=== PATIENT | female | born 1985 | race Caucasian/White ===

== ENCOUNTER → 2021-05-26 16:05 | Outpatient (CLI) | payer OTHER, MEDICAID, SELFPAY ==
[2021-05-26 17:10] LABS: Erythrocyte Sedimentation Rate 5 MM/HR (0-20)
[2021-05-26 17:59] LABS: C-Reactive Protein Quant < 0.5 mg/dL (<1.0)
[2021-05-26 18:07] LABS: Rheumatoid Factor < 8.6 IU/mL (<12.0)
[2021-05-28 21:36] LABS: CCP Antibodies IgG/IgA 6 units (0-19)
[2021-05-29 17:41] LABS: ANA Screen, IFA Negative (.)
== END ==
PROVIDERS: PCP Family Medicine; Referring Provider Family Medicine; Visit Provider Family Medicine
DX: G89.4 Chronic pain syndrome (principal); M25.549 Pain in joints of unspecified hand; Q79.60 Ehlers-Danlos syndrome, unspecified
CPT/HCPCS: 36415; 85651; 86038; 86140; 86200; 86430

== ENCOUNTER → 2021-07-22 13:00 | Outpatient (CLI) | payer OTHER, MEDICAID, SELFPAY ==
--- NOTE | 2021-07-22 13:13 | DI.ECHO.S_ITS ---
+ + :Reason For Study: BICUSPID AORTIC VALVE : :Ordering Physician: MIRANDA, : :WILLIAM Performed By: Beverly Hilton : :Referring: WILLIAM JEAN : + + Interpretation Summary The left ventricle is normal in size and wall thickness. The ejection fraction is estimated to be 60-65%. The right ventricle is normal in size and function. The IVC is of normal diameter and collapses greater than 50% with a sniff. This suggests a low right atrial pressure of 3 mm Hg. The ascending aorta is mild-moderately enlarged 3.9 cm. Bicuspid Aortic valve. No significant valvular disease. Procedure: A two-dimensional transthoracic echocardiogram with color flow and Doppler was performed. The study quality was technically good. There is no prior echocardiogram noted for this patient. The patient was in sinus tachycardia with heart rates between 84-116 bpm during the exam. Left Ventricle: The left ventricle is normal in size and wall thickness. The ejection fraction is estimated to be 60-65%. Left ventricular wall motion is normal. Diastolic function could not be accurately assessed due to tachycardia. Right Ventricle: The right ventricle is normal in size and function. Atria: Both atria are normal in size. There is no Doppler evidence for an interatrial shunt. Mitral Valve: The mitral valve is normal in structure and function. There is a flat closure plane of the the mitral valve leaflets. There is no mitral valve stenosis. There is no mitral regurgitation noted. Aortic Valve: The aortic valve is bicuspid. The aortic valve opens well. There is no aortic valve stenosis. There is trace aortic regurgitation. Tricuspid Valve: The tricuspid valve is normal in structure and function. There is trace tricuspid regurgitation. Pulmonary artery pressures cannot be estimated because of the lack of a measurable TR jet velocity but the IVC suggests a CVP of around 3 mmHg. Pulmonic Valve: The pulmonic valve leaflets are thin and pliable; valve motion is normal. There is a trace or physiologic amount of pulmonic regurgitation. Great Vessels: The aortic root is normal size. The ascending aorta is mildmoderately enlarged. The IVC is of normal diameter and collapses greater than 50% with a sniff. This suggests a low right atrial pressure of 3 mm Hg. Pericardium/ Pleura There is no pericardial effusion. There is no pleural effusion. MMode/2D Measurements & Calculations LVIDd: 3.7 cm LVOT diam: 2.0 cm LVIDs: 2.7 cm Ao root diam: 3.4 cm FS: 26.0 % asc Aorta Diam: 3.9 cm IVSd: 0.73 cm Ao Arch Diam (Prox Trans): 2.6 cm LVPWd: 0.64 cm LV akhtar. diameter/BSA (cm/m^2): 2.3 LV sys. diameter/BSA (cm/m^2): 1.7 LA A2 area: 11.5 cm2 RA long axis: 3.7 cm LA A4 area: 12.8 cm2 RA area: 11.8 cm2 LA length (vol): 3.9 cm RA vol: 31.6 ml LA vol: 32.0 ml RA : 19.4 ml/m2 LA vol index: 19.7 ml/m2 IVC diam: 1.7 cm RVD1 (basal): 3.4 cm TAPSE: 2.1 cm Doppler Measurements & Calculations Ao V2 max: 145.9 cm/sec LVOT Max Ramon: 92.0 cm/sec Ao V2 mean: 97.8 cm/sec LV V1 max P.4 mmHg Ao max P.5 mmHg LV V1 VTI: 18.4 cm Ao mean P.3 mmHg JESSICA(I,D): 2.6 cm2 Ao V2 VTI: 23.2 cm JESSICA(V,D): 2.1 cm2 sev ratio: 0.79 JESSICA indexed to BSA (cm^2/m^2): 1.6 MV E max ramon: 98.5 cm/sec PA V2 max: 85.8 cm/sec MV A max ramon: 2.8 cm/sec PA V2 mean: 59.9 cm/sec MV E/A: 35.4 PA mean P.6 mmHg Med Peak E' Ramon: 14.9 cm/sec PA pr(Accel): 31.5 mmHg E/E' med: 6.6 Lat Peak E' Ramon: 21.5 cm/sec E/E' lat: 4.6 E/e' average: 5.6 MV dec time: 0.17 sec SV(LVOT): 60.4 ml
== END ==
PROVIDERS: PCP Family Medicine; Referring Provider Family Medicine; Visit Provider Family Medicine
DX: Q23.1 Congenital insufficiency of aortic valve (principal); Q79.60 Ehlers-Danlos syndrome, unspecified; I77.89 Other specified disorders of arteries and arterioles; G89.4 Chronic pain syndrome
CPT/HCPCS: 93306

== ENCOUNTER → 2021-08-07 17:12 | Outpatient (CLI) | payer OTHER, MEDICAID, SELFPAY ==
[2021-08-07 18:31] LABS: HEMOLYSIS < 15 (0-50); Iron 113 ug/dL (37-170)
[2021-08-07 18:44] LABS: Percent Iron Saturation 32 % (15-50); Total Iron Binding Capacity 353 ug/dL (265-497); Transferrin 285 mg/dL (206-381)
[2021-08-07 18:50] LABS: Free T4, Direct Thyroxine 1.09 ng/dL (0.78-2.19)
[2021-08-07 19:03] LABS: Thyroid Stimulating Hormone 2.01 uIU/mL (0.47-4.68)
== END ==
PROVIDERS: PCP Family Medicine; Referring Provider Obstetrics & Gynecology; Visit Provider Obstetrics & Gynecology
DX: L65.9 Nonscarring hair loss, unspecified (principal)
CPT/HCPCS: 36415; 83540; 83550; 84439; 84443

== ENCOUNTER 2021-08-26 13:01 | Emergency (ER) | payer OTHER, MEDICAID, SELFPAY ==
[2021-08-26 13:12] VITALS: BP 140/79; PULSE 109; RESP 15; TEMP 37; O2SAT 100; BMI 18.8
== END 2021-08-26 14:50 | disposition left against medical advice (07) ==
PROVIDERS: Emergency Provider Emergency Medicine; PCP Family Medicine
DX: Z53.21 Procedure and treatment not carried out due to patient leaving prior to being seen by health care provider (principal)
CPT/HCPCS: 81003; 81025; 99282

== ENCOUNTER → 2021-10-07 17:31 | Outpatient (CLI) | payer OTHER, MEDICAID, SELFPAY ==
[2021-10-07 18:18] LABS: HEMOLYSIS < 15 (0-50); Iron 102 ug/dL (37-170)
[2021-10-07 18:29] LABS: Percent Iron Saturation 28 % (15-50); Total Iron Binding Capacity 359 ug/dL (265-497); Transferrin 270 mg/dL (206-381)
[2021-10-07 18:37] LABS: Free T4, Direct Thyroxine 1.09 ng/dL (0.78-2.19); Progesterone, Total 2.97 ng/mL
[2021-10-07 18:50] LABS: Thyroid Stimulating Hormone 2.66 uIU/mL (0.47-4.68)
[2021-10-07 18:52] LABS: Estradiol, Total 62.8 pg/mL
[2021-10-12 18:35] LABS: Percent Free Testosterone 1.38 % (0.50-2.80); Testosterone Free 0.38 ng/dL (0.10-0.85); Testosterone Total 27.2 ng/dL (10.0-55.0)
== END ==
PROVIDERS: PCP Family Medicine; Referring Provider Obstetrics & Gynecology; Visit Provider Obstetrics & Gynecology
DX: L65.9 Nonscarring hair loss, unspecified (principal)
CPT/HCPCS: 36415; 82670; 83540; 83550; 84144; 84402; 84403; 84439; 84443

== ENCOUNTER → 2021-10-13 11:21 | Outpatient (CLI) | payer OTHER, MEDICAID, SELFPAY ==
[2021-10-13 12:09] LABS: COVID19 -Nasal RAPID Negative (Negative)
== END ==
PROVIDERS: PCP Family Medicine; Visit Provider Obstetrics & Gynecology
DX: Z01.812 Encounter for preprocedural laboratory examination (principal); Z20.822 Contact with and (suspected) exposure to COVID-19
CPT/HCPCS: 87635; C9803

== ENCOUNTER 2021-10-14 08:43 | Day surgery (SDC) | payer OTHER, MEDICAID, SELFPAY ==
[2021-10-03 09:19] VITALS: BMI 19.1
[2021-10-14] VITALS (9 sets, daily range): BP systolic 103–123; BP diastolic 68–81; PULSE 79–104; RESP 10–16; TEMP 36.8–37.6; O2SAT 100; BMI 19.1
[2021-10-14] MEDS: LACTATED RINGERS 1,000 ML 100 ML IV ×2 (09:18→11:30)
--- NOTE | 2021-10-14 10:52 | PM.HP.1 ---
History of Present Illness History of Present Illness Date Patient Seen: 10/14/21 Time Patient Seen: 10:52 Chief complaint: PELVIC Narrative: Patient is a 36-year-old 1 para 0 who presents with pelvic pain, dysmenorrhea, and a Mirena IUD in place She is scheduled for a Mirena IUD removal, a diagnostic laparoscopy with possible lysis of adhesions or fulguration of endometriosis Patient History Medical History (Updated 09/10/21 @ 00:00 by ) ADHD Anxiety Bicuspid aortic valve Chronic pain syndrome Nelson-Danlos syndrome Fibromyalgia Migraine aura, persistent OCD (obsessive compulsive disorder) PTSD (post-traumatic stress disorder) Small fiber neuropathy Surgical History (Updated 08/27/21 @ 05:55 by Anne Jiménez MD) Status post breast reduction Status post laparoscopic cholecystectomy Family & Social History Social History: household members family Tobacco & Substance use: Smoking Status Never smoker alcohol intake current alcohol intake frequency holiday/special occasion Substance Use Type does not use Meds Home Medications and Allergies Home Medications Medication Instructions Recorded Confirmed Type sumatriptan succinate 25 mg tablet See Rx Instructions PO .COMPLEX 06/11/21 10/03/21 Rx #30 tab dextroamphetamine-amphetamine ER 30 mg PO DAILY #30 cap 10/02/21 10/14/21 Rx 30 mg 24hr capsule,extend release (Adderall XR) tramadol 50 mg tablet 50 mg PO QID #120 tab 10/02/21 10/14/21 Rx Allergies Allergy/AdvReac Type Severity Reaction Status Date / Time adhesive tape AdvReac Mild Minor skin Verified 10/14/21 09:06 irritation Exam Vital Signs (past 8 hours): - 10/14/21 09:09 Temperature 99.6 F Pulse Rate 79 Respiratory Rate 16 Blood Pressure 121/74 Pulse Oximetry 100 Oxygen Delivery Method Room Air Narrative Exam Narrative: HEENT: [No thyromegaly, no anterior cervical or supraclavicular lymphadenopathy.] Lungs:[Clear to auscultation bilaterally, no wheezes.] Cardiovascular: [Regular rate and rhythm, no murmurs, rubs, or gallops]. Abdomen: [Well-healed right upper quadrant scars. No hepatosplenomegaly. No masses palpable.] External genitalia: [Normal] Vagina: [Normal] Cervix: Nulliparous Bimanual exam: 6 week size anteverted uterus. No adnexal masses or tenderness. Some uterosacral ligament tenderness. Extremities: No edema Assessment & Plan Assessment & Plan narrative: Assessment: 36-year-old 1 para 0 with dysmenorrhea, pelvic pain, and a Mirena IUD in place Plan: Removal of Mirena IUD Diagnostic laparoscopy with possible fulguration of endometriosis or lysis of adhesions The risks, benefits, and alternatives to the procedure were explained to the patient. The risks including bleeding, infection, injury to the bowel, bladder, or ureters. She understands these risks and agrees to proceed. A full par Q was held and consent form was signed. COVID-19 COVID-19 status: Negative Result date/Date tested (Pos, Neg/Pending): 10/13/21 Time Spent With Patient Time with patient: less than 30 minutes Critical Care time: I spent a total of [] minutes of critical care time on this patient's care today; this time is exclusive of procedural time.
--- NOTE | 2021-10-14 10:55 | SUR.PREOP ---
Patient states that Dr. Jiménez said that she doesn't need a pre-op urine HCG
--- NOTE | 2021-10-14 10:56 | PM.PREOP ---
Pre-operative Note COVID-19 COVID-19 status: Negative Result date/Date tested (Pos, Neg/Pending): 10/13/21 Criteria for continued procedure: Continuing or worsening of significant or severe pain and Non-surgical alternatives not available or appropriate per current SOC Interval Note History & Physical reviewed/Exam performed by Physician: Yes Changes to H&P: No H&P completed within 30 days and has changed as indicated here:: 10/14/21
[2021-10-14] MEDS: BUPIVACAINE 0.5% (PF) 30 ML, EPINEPHrine 0.15 MG INJ (12:00)
--- NOTE | 2021-10-14 12:14 | PM.GYNOP.1 ---
Operative Date/Time/Diagnoses Date of procedure: 10/14/21 Time of procedure: 12:15 Pre-op diagnosis: Pelvic pain Dysmenorrhea Mirena IUD in place Post-op diagnosis: same Procedure & Clinicians Procedure: Procedures Operation Date: 10/14/21 09:45 Actual Procedure Side Surgeon paras NAPIER Laparoscopy, Poss. Fulguration of Endometriosis, Removal of IUD Anne Jiménez MD Indications: Pelvic pain Dysmenorrhea Mirena IUD in place, desires removal Surgeon: Anne Jiménez Anesthesia Type: General and Local Operative Notes Findings: 6 week size anteverted uterus Prominent small vessels in the posterior cul-de-sac Normal left tube and ovary Normal right ovary Right tube with a paratubal cyst Surgical clip in the right lower quadrant Normal liver Closure Type: primary Specimen(s): none Estimated blood loss (mL): 5 Blood products transfused: none Procedure in detail: After informed consent was obtained, the patient was taken to the operating room where she was placed in the dorsal supine position. After adequate general endotracheal anesthesia was achieved, she was placed in the dorsal lithotomy position, and prepped and draped in the usual sterile fashion. A time-out was performed. A bivalve speculum was placed into the vagina. The Mirena IUD strings were visible outside the cervical os. They were grasped with a ring forcep and the IUD was removed without difficulty. The cervical os was sequentially dilated until the Zumi uterine manipulator could pass easily into the endometrial cavity. Single-tooth tenaculum was removed from the anterior lip of the cervix. The bivalve speculum was removed from the vagina. Attention was then turned to the abdomen where 6 cc of 0.5% Marcaine with epinephrine were injected in the umbilical fold through previous incision. The Veress needle was placed into the peritoneal cavity, and its placement confirmed by aspiration and drop test. The abdominal cavity was insufflated with 2.9 L of CO2. The Veress needle was removed, and a 5 mm trocar was placed without difficulty. A second incision was made above the pubic symphysis after 6 cc of 0.5% Marcaine with epinephrine were injected. A 5 mm trocar was placed under direct visualization. The probe was used to identify both tubes and ovaries as well as posterior cul-de-sac. There was a small amount of clear/yellow fluid in the posterior cul-de-sac. There was a surgical clip that was visualized in the right lower quadrant. A third incision was made 4 cm lateral on the right side after 6 cc of 0.5% Marcaine with epinephrine were injected a third 5 mm trocar was placed under direct visualization. The probe was used to hold the tube and ovary out of the way. Surgical clip was grasped and excised with Endo Brandon. No bleeding was noted. A right paratubal cyst was grasped with a grasper distal to the tube. The tissue between the tube and the cyst was cauterized and cut with the Endo Brandon. Hemostasis was achieved. A small amount of fluid was aspirated from the posterior cul-de-sac. The instruments were removed from the abdomen. The CO2 was allowed to escape. The incisions were closed with 4-0 Monocryl in a subcuticular fashion. Steri-Strips and Allevyn dressings were placed. The Zumi uterine manipulator was removed from the uterus. Sponge, lap, and instrument counts were correct x2. The patient tolerated the procedure well, and was taken to PACU in stable condition. Complications: none Post-operative Condition: stable Disposition: PACU Plan for aftercare: Home after recovery
--- NOTE | 2021-10-14 12:21 | SUR.PHASEI ---
Received to PACU after general anesthesia. Airway patent, self maintained. Report from Dr Siddiqi and PETERSON Funk.
--- NOTE | 2021-10-14 12:27 | SUR.OPER ---
Lithotomy on padded OR bed, head on pillow, arms padded with gel pads and tucked at sides. Legs secured in padded yellow fins stirrups. Patient voided at 1105 in pre-op bathroom prior to going into OR.
[2021-10-14] MEDS: OXYCODONE/ACETAMINOPHEN 5/325 TABLET 1 TAB PO (12:55)
[2021-10-14] MEDS: BENZOCAINE/MENTHOL 1 LOZ PKT 1 EACH PO (13:33)
== END 2021-10-14 14:00 | disposition home or self-care (01) ==
PROVIDERS: PCP Family Medicine; Referring Provider Obstetrics & Gynecology; Visit Provider Obstetrics & Gynecology
PROC: 0U5B4ZZ Destruction of Endometrium, Percutaneous Endoscopic Approach (ICD-10-PCS; CPT 58662; principal; 2021-10-14 09:45)
DX: N94.6 Dysmenorrhea, unspecified (principal); Z30.432 Encounter for removal of intrauterine contraceptive device; N83.8 Other noninflammatory disorders of ovary, fallopian tube and broad ligament; G43.909 Migraine, unspecified, not intractable, without status migrainosus; Q79.60 Ehlers-Danlos syndrome, unspecified; M79.7 Fibromyalgia
CPT/HCPCS: 58662; 58301; J0171; J0330; J2250; J3010

== ENCOUNTER → 2022-02-13 10:56 | Outpatient (CLI) | payer OTHER, MEDICAID, SELFPAY ==
[2022-02-14 02:04] LABS: Alanine Aminotransferase 15 IU/L (<35); Albumin 4.3 g/dL (3.5-5.0); Albumin Globulin Ratio 1.7 (1.0-2.8); Alkaline Phosphatase 44 U/L (38-126); Aspartate Aminotransferase 20 IU/L (14-36); BUN Creatinine Ratio 16.2 (6-22); Bilirubin Total 1.1 mg/dL (0.2-1.3); Blood Urea Nitrogen 11 mg/dL (7-17); Calcium 9.2 mg/dL (8.4-10.2); Carbon Dioxide 26 mmol/L (22-32); Chloride 106 mmol/L (98-107); Estimated Glomerular Filt Rate > 60 mL/min (>60); Globulin 2.6 g/dL (1.7-4.1); Glucose 82 mg/dL (70-100); HEMOLYSIS < 15 (0-50); Potassium 4.7 mmol/L (3.4-5.1); Sodium 140 mmol/L (137-145); Total Protein 6.9 g/dL (6.3-8.2)
== END ==
PROVIDERS: PCP Family Medicine; Referring Provider Obstetrics & Gynecology; Visit Provider Obstetrics & Gynecology
DX: K76.0 Fatty (change of) liver, not elsewhere classified (principal); R10.11 Right upper quadrant pain
CPT/HCPCS: 36415; 80053

== ENCOUNTER → 2022-04-03 12:16 | Outpatient (CLI) | payer OTHER, MEDICAID, SELFPAY ==
--- NOTE | 2022-04-03 12:18 | DI.US.S_ITS ---
PROCEDURE: US ABDOMEN LIMITED INDICATIONS: RUQ pain and hepatic steatosis TECHNIQUE: Real-time focused scanning was performed of the abdomen, with image documentation. COMPARISON: None. FINDINGS: The liver is normal in size and demonstrates no suspicious lesions. The liver demonstrates normal overall echotexture. Status post cholecystectomy. There is no biliary dilatation, the common bile duct measures 3 mm. No significant pancreatic abnormality is seen on these images. IMPRESSION: Status post cholecystectomy, without biliary dilatation. Fatty liver infiltration is not demonstrated on this study. Dictated by: Fran Carrillo M.D. on 04/03/2022 at 13:31 Approved by: Fran Carrillo M.D. on 04/03/2022 at 13:31
== END ==
PROVIDERS: PCP Family Medicine; Referring Provider Family Medicine; Visit Provider Family Medicine
DX: R10.11 Right upper quadrant pain (principal); K76.0 Fatty (change of) liver, not elsewhere classified; Z90.49 Acquired absence of other specified parts of digestive tract
CPT/HCPCS: 76705

== ENCOUNTER → 2022-08-03 13:40 | Outpatient (CLI) | payer OTHER, MEDICAID, SELFPAY ==
--- NOTE | 2022-08-03 13:50 | DI.ECHO.S_ITS ---
Interpretation Summary The ejection fraction is estimated to be 55-60%. Diastolic parameters suggest probable normal left ventricular diastolic function and normal filling pressures. The right ventricle is normal in size and function. The aortic valve is bicuspid. There is trace aortic regurgitation. Pulmonary artery pressures cannot be estimated because of the lack of a measurable TR jet velocity. The ascending aorta is mildly enlarged, 3.8 cm. Procedure: A two-dimensional transthoracic echocardiogram with color flow and Doppler was performed. The study quality was technically adequate. Comparison is made with the echocardiogram of 07/22/2021. The patient was in normal sinus rhythm during the exam. Left Ventricle: The left ventricle is normal in size and wall thickness. Left ventricular systolic function is normal. The ejection fraction is estimated to be 55-60%. There are no focal wall motion abnormalities. Diastolic parameters suggest probable normal left ventricular diastolic function and normal filling pressures. Right Ventricle: The right ventricle is normal in size and function. Atria: Both atria are normal in size. The interatrial septum grossly appears intact with no obvious evidence for an atrial septal defect. Mitral Valve: The mitral valve is normal in structure and function. There is trace mitral regurgitation. Aortic Valve: The aortic valve is bicuspid. The aortic valve opens well. There is no aortic valve stenosis. There is trace aortic regurgitation. Tricuspid Valve: The tricuspid valve is normal in structure and function. No tricuspid regurgitation. Pulmonary artery pressures cannot be estimated because of the lack of a measurable TR jet velocity. Pulmonic Valve: The pulmonic valve is normal in structure and function. There is no pulmonic valvular regurgitation. Great Vessels: The aortic root is normal size. The ascending aorta is mildly enlarged. The IVC is of normal diameter and collapses greater than 50% with a sniff. This suggests a low right atrial pressure of 3 mm Hg. Pericardium/ Pleura There is no pericardial effusion. There is no pleural effusion. MMode/2D Measurements & Calculations LVIDd: 4.1 cm LVOT diam: 2.1 cm LVIDs: 2.6 cm Ao root diam: 3.4 cm FS: 36.6 % asc Aorta Diam: 3.8 cm IVSd: 0.70 cm LVPWd: 0.80 cm LV akhtar. diameter/BSA (cm/m^2): 2.5 LV sys. diameter/BSA (cm/m^2): 1.6 LA dimension: 2.5 cm RA long axis: 4.0 cm LA A2 area: 10.9 cm2 LA A4 area: 13.1 cm2 LA length (vol): 3.6 cm LA vol: 33.8 ml LA vol index: 20.4 ml/m2 TAPSE_phl: 2.5 cm Doppler Measurements & Calculations Ao V2 max: 126.0 cm/sec LVOT Max Ramon: 82.2 cm/sec Ao V2 mean: 89.7 cm/sec LV V1 max P.7 mmHg Ao max P.0 mmHg LV V1 VTI: 17.7 cm Ao mean P.0 mmHg JESSICA(I,D): 2.6 cm2 Ao V2 VTI: 24.0 cm JESSICA(V,D): 2.3 cm2 sev ratio: 0.74 JESSICA indexed to BSA (cm^2/m^2): 1.5 MV E max ramon: 89.1 cm/sec SV(LVOT): 61.3 ml MV A max ramon: 54.8 cm/sec MV E/A: 1.6 Med Peak E' Armon: 14.6 cm/sec E/E' med: 6.1 Lat Peak E' Ramon: 20.0 cm/sec E/E' lat: 4.5 E/e' average: 5.3 MV dec time: 0.21 sec AV VR_phl: 0.65 MV P1/2t-pr_phl: 61.0 msec JESSICA(VTI)/BSA_phl: 1.5 Reading Physician:04:51 PM
== END ==
PROVIDERS: PCP Family Medicine; Referring Provider Family Medicine; Visit Provider Family Medicine
DX: Q23.1 Congenital insufficiency of aortic valve (principal); Q79.60 Ehlers-Danlos syndrome, unspecified; I77.819 Aortic ectasia, unspecified site; I77.89 Other specified disorders of arteries and arterioles
CPT/HCPCS: 93306

== ENCOUNTER → 2022-09-30 15:06 | Outpatient (CLI) | payer OTHER, MEDICAID, SELFPAY ==
--- NOTE | 2022-09-30 15:07 | DI.RAD.S_ITS ---
PROCEDURE: XR CERVICAL SPINE 2V OR 3V INDICATIONS: chronic neck pain TECHNIQUE: 3 view(s) of the cervical spine were acquired. COMPARISON: None. FINDINGS: Bones: No fractures or dislocations to the T1 level. Mild focal kyphosis at C4-C5. The lateral masses of C1 appear intact on the odontoid view. No suspicious bony lesions. Soft tissues: No prevertebral soft tissue swelling. IMPRESSION: 1. Mild focal kyphosis at C4-C5, possibly positional, or indicating ligamentous injury. This could be further assessed with MRI, if clinically indicated. 2. No acute fracture. No osseous lesion. If symptoms and/or clinical suspicion for pathology persist, further assessment with repeat, or advanced imaging (e.g., CT, MRI, or bone scan) may be helpful for further assessment. Dictated by: Ignacio Cope M.D. on 09/30/2022 at 16:13 Transcribed by: LAWRENCE on 09/30/2022 at 16:13 Approved by: Ignacio Cope M.D. on 09/30/2022 at 16:32
== END ==
PROVIDERS: PCP Family Medicine; Referring Provider Family Medicine; Visit Provider Family Medicine
DX: M40.202 Unspecified kyphosis, cervical region (principal); M54.2 Cervicalgia; M62.838 Other muscle spasm; G89.29 Other chronic pain
CPT/HCPCS: 72040

== ENCOUNTER → 2023-09-24 11:37 | Outpatient (CLI) | payer OTHER, MEDICAID, SELFPAY ==
--- NOTE | 2023-09-24 11:41 | DI.RAD.S_ITS ---
PROCEDURE: XR CHEST 2V INDICATIONS: chronic cough TECHNIQUE: 2 views of the chest were acquired. COMPARISON: None. FINDINGS: Surgical changes and devices: None. Lungs and pleura: Lungs are clear. No pleural effusions or pneumothorax. Mediastinum: Mediastinal contours are normal. Heart size is normal. Bones and chest wall: No suspicious bony abnormalities. Soft tissues appear unremarkable. IMPRESSION: No acute cardiopulmonary abnormality is seen. Dictated by: Akhil Ken M.D. on 09/24/2023 at 14:08 Approved by: Akhil Ken M.D. on 09/24/2023 at 14:09
== END ==
PROVIDERS: PCP Family Medicine; Referring Provider Family Medicine; Visit Provider Family Medicine
DX: R05.3 Chronic cough (principal)
CPT/HCPCS: 71046

== ENCOUNTER → 2024-10-26 12:32 | Outpatient (CLI) | payer OTHER, SELFPAY ==
--- NOTE | 2024-10-26 12:34 | DI.ECHO.S_ITS ---
[facility] : : [address] : : [place] : : [id number] : : Phone: [phone] Echocardiogram Report + + :Name: MARLON NATHAN Study Date: 10/26/2024 Height: 67 in : :[facility] ReadingLocation: Weight: 125 lb : : Gender: Female BSA: 1.7 m2 : :: 1985 Age: 39 yrs BP: 107/78 mmHg: :Reason For Study: AORTIC ANEURYSM : :Ordering Physician: MIRANDA, : :WILLIAM Performed By: Beverly Hilton : :Referring: WILLIAM JEAN : + + Interpretation Summary 1. The left ventricular contractility is normal. Estimate ejection fraction is greater than 55% with no segmental wall motion abnormalities. No LVH. Normal diastolic function. 2. The right ventricular contractility is normal. 3. All cardiac chambers are of normal size. 4. Bicuspid aortic valve without insufficiency nor stenosis. 5. No obvious intracardiac shunts. 6. No obvious intracardiac masses nor thrombi. 7. No hemodynamically significant pericardial effusion. 8. Low right-sided filling pressures. 9. Borderline enlargement of the ascending thoracic aorta at 3.9 cm without obvious dissection. Conclusion: Normal biventricular function with bicuspid aortic valve without associated insufficiency nor stenosis. When compared with previous echocardiogram, no significant changes have occurred. Procedure: A two-dimensional transthoracic echocardiogram with color flow and Doppler was performed. The study quality was technically adequate. Comparison is made with the echocardiogram of 08/03/2022. The patient was in sinus rhythm with heart rates between 78-96 bpm during the exam. Left Ventricle: The left ventricle is normal in size and wall thickness. The ejection fraction is estimated to be 55-60%. Right Ventricle: The right ventricle is normal in size and function. Atria: The left atrial size is normal. Right atrial size is normal. There is no Doppler evidence for an interatrial shunt. Mitral Valve: There is a flat closure plane of the the mitral valve leaflets. There is trace mitral regurgitation. Aortic Valve: The aortic valve is bicuspid. There is no aortic valve stenosis. There is no aortic regurgitation. Tricuspid Valve: The tricuspid valve leaflets are thin and pliable. There is trace tricuspid regurgitation. The right ventricular systolic pressure is estimated to be at least 22 mmHg based on an estimated right atrial pressure of 3 mm Hg. Pulmonic Valve: The pulmonic valve leaflets are thin and pliable; valve motion is normal. There is trace pulmonic regurgitation. Great Vessels: The aortic root is normal size. The ascending aorta is mildly enlarged. The IVC is of normal diameter and collapses greater than 50% with a sniff. This suggests a low right atrial pressure of 3 mm Hg. Pericardium/ Pleura There is no pericardial effusion. There is no pleural effusion. MMode/2D Measurements & Calculations LVIDd: 4.1 cm LVOT diam: 2.0 cm LVIDs: 2.7 cm Ao root diam: 3.3 cm FS: 33.6 % asc Aorta Diam: 3.9 cm EPSS: 0.33 cm Ao Arch Diam (Prox Trans): 2.6 cm IVSd: 0.67 cm LVPWd: 0.68 cm LV akhtar. diameter/BSA (cm/m^2): 2.5 LV sys. diameter/BSA (cm/m^2): 1.6 LA A2 area: 9.5 cm2 RA long axis: 4.0 cm LA A4 area: 12.0 cm2 RA area: 10.6 cm2 LA length (vol): 4.0 cm RA vol: 23.6 ml LA vol: 24.2 ml RA : 14.3 ml/m2 LA vol index: 14.6 ml/m2 IVC diam: 1.2 cm RVD1 (basal): 3.3 cm RVD2 (mid): 2.5 cm TAPSE: 2.0 cm Doppler Measurements & Calculations Ao V2 max: 119.6 cm/sec LVOT Max Ramon: 79.3 cm/sec Ao V2 mean: 82.6 cm/sec LV V1 max P.5 mmHg Ao max P.7 mmHg LV V1 VTI: 17.5 cm Ao mean P.0 mmHg JESSICA(I,D): 2.3 cm2 Ao V2 VTI: 23.3 cm JESSICA(V,D): 2.0 cm2 sev ratio: 0.75 JESSICA indexed to BSA (cm^2/m^2): 1.4 MV E max ramon: 82.8 cm/sec TR max ramon: 219.1 cm/sec MV A max ramon: 43.4 cm/sec TR max P.2 mmHg MV E/A: 1.9 PA V2 max: 77.6 cm/sec Med Peak E' Ramon: 13.0 cm/sec PA V2 mean: 52.0 cm/sec E/E' med: 6.4 PA mean P.2 mmHg Lat Peak E' Ramon: 20.1 cm/sec PA pr(Accel): 10.9 mmHg E/E' lat: 4.1 E/e' average: 5.2 MV dec time: 0.18 sec SV(LVOT): 53.3 ml Reading Physician:PM
== END ==
PROVIDERS: PCP Family Medicine; Referring Provider Family Medicine; Visit Provider Family Medicine
DX: Q23.81 Bicuspid aortic valve (principal); I77.89 Other specified disorders of arteries and arterioles; Q23.1 Congenital insufficiency of aortic valve; Q79.60 Ehlers-Danlos syndrome, unspecified; I77.819 Aortic ectasia, unspecified site
CPT/HCPCS: 93306